=== PATIENT | male | born 1985 | race Caucasian/White ===

== ENCOUNTER 2016-11-06 00:42 | Emergency (ER) | payer BC ==
[~2016-11-06] VITALS: Ht 177.8 cm; Wt 118.0 kg
[2016-11-06] MEDS ORDERED: CLINDAMYCIN HC300 MG PO (01:52)
[2016-11-06] MEDS ORDERED: PERCOCET 5/31 TABLET PO (01:52)
[2016-11-06 02:19] VITALS: BP 130/80
== END 2016-11-06 02:20 | disposition home or self-care (01) ==
LOC: EME 00:42
PROC: 0H98XZZ Drainage of Buttock Skin, External Approach (ICD-10-PCS; principal; 2016-11-06)
DX: L02.31 Cutaneous abscess of buttock (principal)
CPT/HCPCS: 99281; 99283